=== PATIENT | male | born 1985 ===

== ENCOUNTER 2019-05-18 07:09 | Day surgery (SDC) | payer BC ==
[~2019-05-18] VITALS: Ht 190.5 cm; Wt 119.6 kg
[~2019-05-18 07:09] MED LIST: HYDACE5 PO; RXHYDACE PO; VICKS DAYQUIL-1 EACH PO
--- NOTE | 2019-05-18 08:14 | NUR ---
History, Chart, Medications and Allergies reviewed before start of procedure.Lungs clear T/O to Auscultation. Patient confirms NPO status and agrees with scheduled surgery. Pre-Op teaching done. Pt verbalizes understanding. History, Chart, Medications and Allergies reviewed before start of procedure. Patient reports completing Chlorhexadine shower X2 prior to admission to hospital.Hemostasis achieved per protocol at Refer to Hemo report for Access Site Details.
--- NOTE | 2019-05-18 12:09 | NUR ---
BIOX IMPROVES WITH DEEP BREATING TO 94%, BUT DROPS WHEN PATIENT UNAROUSED. 2LO 2/NC PLACED. BIOX 93% ON 2L O2/NC.
--- NOTE | 2019-05-18 12:10 | NUR ---
GAUZE DRESSING X3 TO ABD CLEAN, DRY INTACT WITH NO VISIBLE DRAINAGE. NO VISIBLE SWELLING, DRAINAGE OR BRUISING NOTED TO ABDOMEN. CLEAR OCCLUSIVE DRESSING OVER GUAUZE DRESSINGS X3.
--- NOTE | 2019-05-18 12:23 | NUR ---
REPORT GIVEN TO SHEMAR SCOTT RN.
--- NOTE | 2019-05-18 13:54 | NUR ---
Discharge instructions reviewed with patient. Patient verbalizes understanding. Copy given to patient to take home. Dressing CDI. Ice therapy given to pt for comfort. Abd binder in place. Discharged via wheelchair to private car for ride home.
--- NOTE | 2019-05-21 10:36 | NUR ---
05/21/19 1036 Iris Jacome VERIFICATIONS: EDIT CHART.
== END 2019-05-18 12:00 | disposition home or self-care (01) ==
LOC: ORSCMMR 07:09 → ORD 08:30 → ORSCMMR 08:30
PROVIDERS: Surgery
PROC: 0YUA4JZ Supplement Bilateral Inguinal Region with Synthetic Substitute, Percutaneous Endoscopic Approach (ICD-10-PCS; principal; 2019-05-18 08:30)
PROC: 8E0W4CZ Robotic Assisted Procedure of Trunk Region, Percutaneous Endoscopic Approach (ICD-10-PCS; principal; 2019-05-18 08:30)
DX: K40.20 Bilateral inguinal hernia, without obstruction or gangrene, not specified as recurrent (principal); E66.9 Obesity, unspecified; Z68.33 Body mass index [BMI] 33.0-33.9, adult
CPT/HCPCS: 49650; S2900; A9270-GY; C1781; J0690; J1100; J2250; J2405; J2704; J3010; J7120

== ENCOUNTER 2024-04-26 02:26 | Emergency (ER) | payer BC ==
[~2024-04-26] VITALS: Ht 188 cm; Wt 117.9 kg
[2024-04-26] MEDS ORDERED: Ondansetron HCl 2 MG / ML 2ML Vial IV ONE ×2 (03:15→05:15)
[2024-04-26] MEDS ORDERED: Morphine Sulfate 4 MG/1 ML Injection IV ONE (03:15)
[2024-04-26 03:45] LABS: Bilirubin, Urine Neg (Neg); Blood, Urine 5+ (Neg); Glucose Qualitative, Urine Neg (Neg); Ketones, Urine Neg (Neg); Leukocyte Esterase, Urine Neg (Neg); Nitrite, Urine Neg (Neg); Source, Urine Clean Catch; Specific Gravity, Urine 1.025 (1.003-1.022); Urobilinogen, Urine NORM (Normal)
[2024-04-26 04:02] LABS: Protein, Urine 3+ (Neg)
[2024-04-26 04:18] LABS: Appearance, Urine Hazy (Clear); Color, Urine Amber (P-Yellow)
[2024-04-26 04:20] LABS: Bacteria Few /hpf; Mucus Mod (0-Heavy); Red Blood Cells, Urine TNTC /hpf (0-2); Squamous Epithelial Cells Few /hpf (Few); White Blood Cells, Urine 0-2 /hpf (0-5)
[2024-04-26] MEDS ORDERED: Ketorolac Tromethamine 30mg Vial IV ONE (04:20)
[2024-04-26] MEDS ORDERED: NS 1,000 ML IV SCH (04:20)
[2024-04-26 04:36] LABS: BASOPHILS ABSOLUTE AUTO 0.06 K/mm3 (0.00-0.23); BASOPHILS PERCENT AUTO 1 % (0-2); EOSINOPHILS ABSOLUTE AUTO 0.43 K/mm3 (0.00-0.68); EOSINOPHILS PERCENT AUTO 6 % (0-6); Hematocrit 40.6 % (37.0-53.0); Hemoglobin 14.4 g/dL (13.5-17.5); IMMATURE GRAN ABSOLUTE AUTO 0.09 K/mm3 (0.00-0.10); IMMATURE GRAN PERCENT AUTO 1 % (0-1); LYMPHOCYTES ABSOLUTE AUTO 1.77 K/mm3 (0.84-5.20); LYMPHOCYTES PERCENT AUTO 26 % (21-46); MONOCYTES ABSOLUTE AUTO 0.67 K/mm3 (0.16-1.47); MONOCYTES PERCENT AUTO 10 % (4-13); Mean Corpuscular HGB 29.6 pg (26.0-34.0); Mean Corpuscular HGB Conc 35.5 g/dL (31.5-36.5); Mean Corpuscular Volume 84 fL (80-100); NEUTROPHILS ABSOLUTE AUTO 3.68 K/mm3 (1.96-9.15); NEUTROPHILS PERCENT AUTO 55 % (41-73); RDW Standard Deviation 39.4 fL (35.1-46.3); Red Blood Cell Count 4.86 M/mm3 (4.30-5.90)
[2024-04-26 04:42] LABS: Albumin, Blood 4.1 g/dL (3.4-5.0); Albumin/Globulin Ratio 1.2 (0.8-1.8); Bilirubin, Total 0.8 mg/dL (0.1-1.0); Bun/Creatinine Ratio 20.7 (12.0-20.0); Calcium, Blood 8.5 mg/dL (8.5-10.1); Creatinine, Blood 0.97 mg/dL (0.60-1.20); Globulin, Blood 3.4 g/dL (2.2-4.0); Potassium, Blood 4.4 mmol/L (3.5-5.5); Total Protein, Blood 7.5 g/dL (6.4-8.2)
[2024-04-26] MEDS ORDERED: Morphine Sulfate 10 MG/ML 1MLSYR IV ONE (05:05)
[2024-04-26 05:25] LABS: Platelet Count 206 K/mm3 (150-400)
[2024-04-26] MEDS ORDERED: Tamsulosin HCl 0.4 MG Cap PO ONE (05:55)
[2024-04-26] MEDS ORDERED: HYDROmorphone HCl/Pf 1MG SYR IV ONE ×2 (05:55→07:00)
[2024-04-26] MEDS ORDERED: RX Prepack 6 Tabs Oxycodone 5mg UD ONE (06:15)
[2024-04-26] MEDS ORDERED: TAMS.4ER PO (06:18)
[2024-04-26] MEDS ORDERED: ONDA4ODT MM (06:18)
[2024-04-26] MEDS ORDERED: HYDR1TAB94 PO (06:18)
[2024-04-26] MEDS ORDERED: RX Prepack 2 Tabs Ondansetron ODT 4MG UD ONE (06:20)
[2024-04-26 07:30] VITALS: BP 134/97
== END 2024-04-26 08:32 | disposition home or self-care (01) ==
LOC: ER 02:26
PROVIDERS: Emergency Medicine
DX: N13.2 Hydronephrosis with renal and ureteral calculous obstruction (principal); K76.0 Fatty (change of) liver, not elsewhere classified; Z68.33 Body mass index [BMI] 33.0-33.9, adult; Z91.012 Allergy to eggs; Z91.013 Allergy to seafood
CPT/HCPCS: 74177; 76870; 80053; 81001; 85025; 96374-59; 96375; 96376; 99284-25; A9270; J1171; J1885; J2270; J2405; J7030; Q9967